=== PATIENT | male | born 1985 | race Caucasian/White ===

== ENCOUNTER 2020-02-04 01:29 | Emergency (ER) | payer SELFPAY ==
[2020-02-04 03:04] VITALS: BP 152/106; PULSE 105; RESP 20; TEMP 37.6; O2SAT 97; BMI 29.2
--- NOTE | 2020-02-04 03:31 | ED_ITS ---
HPI - Skin/Abscess/Foreign Bdy General: Chief complaint: Skin/Abscess/Foreign Body Stated complaint: poss cyst between legs Time Seen by Provider: 02/04/20 03:04 Source: patient Mode of arrival: ambulatory Limitations: no limitations History of Present Illness: HPI narrative: 84-year-old male who states he has an abscess to his perineum. He states he had an abscess there in the past. He states it is painful and rates pain a 7 out of 10. He denies any fevers. He states he is seen another ER yesterday and started on antibiotics. He states that it is worsened slightly. He states that he knows he needs to be drained. MD complaint: abscess/boil Onset (ago): day(s) Location: genitals Severity: moderate Quality: sharp Pain Consistency: constant Relieving factors: none Exacerbating factors: none Associated symptoms: Deny chills, fever(s), nausea or vomiting Review of Systems Const: Denies: fever(s), chills, body aches or change in appetite Eyes: Denies: blurry vision or eye discomfort ENMT: Denies: throat pain or dental pain Card: Denies: chest pain Resp: Denies: dyspnea GI: Denies: abdominal pain, nausea, vomiting or diarrhea : Denies: dysuria Musc: Denies: neck pain or back pain Skin/Breast: Denies: rash Neuro: Denies: headache(s) Psych: Denies: depression Sid/Lymph: Denies: easy bruising All/Imm: Denies: urticaria Physical Exam Const: COMMON NORMALS: no acute distress, patient oriented x3 and healthy appearing HENMT: COMMON NORMALS: normocephalic and atraumatic HEAD & SCALP: normocephalic and atraumatic Eye: COMMON NORMALS: Equal, round and reactive pupils present and EOMs intact bilaterally PUPIL: Yes Equal, round and reactive pupils present Neck/C-Spine: COMMON NORMALS: full ROM and supple Chest: COMMONS NORMALS: normal inspection of the chest and normal palpation of entire chest wall Resp: COMMON NORMALS: normal respiratory effort, No retractions, No use of accessory muscles and clear to auscultation bilaterally AUSCULTATION: clear to auscultation bilaterally Cardio: COMMON NORMALS: regular rate, regular rhythm and No murmurs present (Cardio) RATE: regular rate RHYTHM: regular rhythm GI: COMMON NORMALS: Normal to inspection, nondistended, normoactive bowel sounds present, Soft to palpation, non-tender and no masses PALPATION: Yes Soft to palpation : OTHER: 1 Centimeter abscess to perineum Extremity: COMMON NORMALS: normal to inspection and full ROM Neuro: COMMON NORMALS: patient oriented x3, moves all extremities and no focal motor deficits Psych: COMMON NORMALS: mental status grossly normal, Normal thought process present and cooperative THOUGHT PROCESS: Normal thought process present Skin: COMMON NORMALS: no rashes or lesions noted and no wounds GENERAL SKIN EXAM: no rashes or lesions noted Course Vital Signs: Vital signs: Vital Signs Temperature 99.6 F 02/04/20 03:04 Pulse Rate 105 H 02/04/20 03:04 Respiratory Rate 20 H 02/04/20 03:04 Blood Pressure 152/106 02/04/20 03:04 Pulse Oximetry 97 02/04/20 03:04 Coding Level of Care Code ED Composing Room Machinist for Edis Singleton
--- NOTE | 2020-02-04 03:50 | ED_ITS ---
HPI - Skin/Abscess/Foreign Bdy General: Chief complaint: Skin/Abscess/Foreign Body Stated complaint: poss cyst between legs Time Seen by Provider: 02/04/20 03:04 Source: patient Mode of arrival: ambulatory Limitations: no limitations History of Present Illness: MD complaint: abscess/boil Location: genitals Severity: moderate Relieving factors: none Exacerbating factors: none Review of Systems General: Reports: 10 or more systems reviewed and unremarkable except in HPI and below Skin/Breast: Reports: changing lesions Physical Exam Skin: NARRATIVE SKIN EXAM: Patient has a 2 cm fluctuant mass to the posterior inguinal area between the scrotum and the anus. Procedures Abscess I/D Site: rikki-rectal Local Anesthetic: lidocaine 1% Amount of anesthesia used (mL): 5 Amount of fluid expressed (mL): 6 Irrigation: No Packing used?: plain Complications: pain Course Vital Signs: Vital signs: Vital Signs Temperature 99.6 F 02/04/20 03:04 Pulse Rate 105 H 02/04/20 03:04 Respiratory Rate 20 H 02/04/20 03:04 Blood Pressure 152/106 02/04/20 03:04 Pulse Oximetry 97 02/04/20 03:04 MDM - Skin/Abscess/Foreign Bdy MDM Narrative: Medical decision making narrative: Patient was seen by Dr. Merrill and he requested that I do an incision and drainage on the abscess in his inguinal area. Exam noted a 2 cm fluctuant mass to the perineal region between his scrotum and anus. Differential diagnosis includes but not limited to abscess, cellulitis, perirectal abscess. 1 cm incision was made under local anesthesia with purulent drainage from the wound. Patient tolerated well. Reviewed postprocedure care and recommendations for follow-up. Patient reports understanding agreed to plan. Discharge Plan Discharge Patient Disposition: Home, Self-Care Clinical Impression: Abscess of skin or subcutaneous tissue Qualifiers: Site of cutaneous abscess: trunk Site of cutaneous abscess of trunk: groin Qualified Code(s): L02.214 - Cutaneous abscess of groin Condition: Stable Prescriptions: New hydrocodone-acetaminophen 5-325 mg tablet 1 tab PO Q6H PRN (Reason: pain) Qty: 5 RF: 0 Discharge Orders: Discharge Order (Routine); Ordered 02/04/20 Ordered By: Burke Lee Discharge Diet: Usual diet Discharge Activity: Increase activity as tolerated Patient Instructions: Abscess Incision and Drainage (ED) Activity Restrictions/Additional Instructions: Use warm heat packs and warm soaks with gentle pressure. Drink plenty of water. Continue antibiotics until complete. Follow-up with primary care in 1 week. Return to the ER for worsening symptoms or high fever. Coding Level of Care Code ED Mill Representative for Edis Singleton
[2020-02-04 04:32] VITALS: BP 152/99; PULSE 92; RESP 19; O2SAT 96
== END 2020-02-04 04:36 | disposition home or self-care (01) ==
PROVIDERS: Emergency Provider Nurse Practitioner Family
DX: L02.214 Cutaneous abscess of groin (principal)
CPT/HCPCS: 10060; 12345; 46040; 99281; 99283

== ENCOUNTER 2021-06-23 20:39 | Emergency (ER) | payer MEDICAID, SELFPAY ==
[2021-06-23 20:46] VITALS: BP 153/83; PULSE 109; RESP 20; TEMP 37.1; O2SAT 98; BMI 26.6
--- NOTE | 2021-06-23 22:05 | ED_ITS ---
HPI - Skin/Abscess/Foreign Bdy General: Chief complaint: Skin/Abscess/Foreign Body Stated complaint: Possible cyst between legs Time Seen by Provider: 06/23/21 22:04 History of Present Illness: HPI narrative: 36-year-old male patient comes in with an abscess to his perineum. Patient had a similar abscess about 1 year ago. Patient appears well. Patient appears no acute distress. Patient denies any history of diabetes. Patient was seen last night at [facility] and started on Bactrim DS. Review of Systems General: Reports: 10 or more systems reviewed and unremarkable except in HPI and below Skin/Breast: Reports: other (Abscess perineum) Physical Exam Const: COMMON NORMALS: no acute distress and patient oriented x3 GENERAL APPEARANCE: cooperative HENMT: COMMON NORMALS: normocephalic and Normal external nose present HEAD & SCALP: normal to inspection and normocephalic NOSE: Normal external nose present Eye: GENERAL EYE: appearance normal, both eyes and all related structures Neck/C-Spine: COMMON NORMALS: full ROM Chest: COMMONS NORMALS: normal inspection of the chest Resp: COMMON NORMALS: normal respiratory effort EFFORT & INSPECTION: Yes able to speak in complete sentences Cardio: COMMON NORMALS: regular rate and regular rhythm RATE: regular rate RHYTHM: regular rhythm GI: COMMON NORMALS: non-tender : MALE GROIN/PERINEUM EXAM: Yes perineal induration, No Perineum crepitus present, Yes tenderness (Left distal perineum) and Yes other (Fluctuant area to the left lower distal perineum) Extremity: COMMON NORMALS: normal to inspection Neuro: COMMON NORMALS: patient oriented x3 and moves all extremities Psych: COMMON NORMALS: mental status grossly normal and cooperative Skin: COMMON NORMALS: no rashes or lesions noted GENERAL SKIN EXAM: no rashes or lesions noted Procedures Abscess I/D Site: rikki-rectal Side (if applicable): left Local Anesthetic: lidocaine 2% and with epi Amount of anesthesia used (mL): 6 Technique: incised with #11 blade Amount of fluid expressed (mL): 50 Irrigation: No Packing used?: plain Course Vital Signs: Vital signs: Vital Signs Temperature 98.8 F 06/23/21 20:46 Pulse Rate 109 H 06/23/21 20:46 Respiratory Rate 20 H 06/23/21 20:46 Blood Pressure 153/83 06/23/21 20:46 Pulse Oximetry 98 06/23/21 20:46 MDM - Skin/Abscess/Foreign Bdy MDM Narrative: Medical decision making narrative: 36-year-old male patient comes in today for complaints of abscess to the left perineum. Palpation of the tissue indicates some mild induration and fluctuance in the center lesion. Vital signs are normal. Abdomen soft nontender. Differential diagnosis includes cutaneous abscess, Chad's gangrene, perirectal abscess. Abscess appears more into the groin area not involving the perirectal tissue. No crepitus or gas formation is noted in the skin. Patient appears well. Abscess incision and drainage was performed with good results. Patient reported relief of symptoms. Patient will continue with Bactrim DS 1 tablet twice a day for the next 10 days as prescribed from prior ER visit. Discharge Plan Discharge Patient Disposition: Home Clinical Impression: Perineal abscess Condition: Stable Prescriptions: No Action hydrocodone-acetaminophen 5-325 mg tablet 1 tab PO Q6H PRN (Reason: pain) Qty: 5 RF: 0 Discharge Orders: Discharge ED (Routine); Ordered 06/23/21 Ordered By: Burke Lee Discharge Diet: Usual diet Discharge Activity: Increase activity as tolerated Patient Instructions: Abscess Incision and Drainage (DC), Opioid Safety Activity Restrictions/Additional Instructions: Home and rest. Drink lots of water with antibiotic. Follow-up with primary care in 3 days for recheck. Pull wick out in 3 days if it remains in the wound. Take antibiotics as directed. Return to the ER for fever greater than 100.4, or new concerns. Stand Alone Forms: Work/School Release Coding Level of Care Code ED Disease Case Manager for Edis Singleton
== END 2021-06-23 23:12 | disposition home or self-care (01) ==
PROVIDERS: Emergency Provider Nurse Practitioner Family
DX: L02.215 Cutaneous abscess of perineum (principal)
CPT/HCPCS: 10060; 99282